=== PATIENT | female | born 1945 | race Caucasian/White ===

== ENCOUNTER 2025-02-19 08:13 | Emergency (ER) | payer OTHER, MEDICARE, MEDICAID ==
[~2025-02-19] VITALS: Ht 165.1 cm; Wt 68.0 kg
--- NOTE | 2025-02-19 08:51 | Physician Documentation ---
History of Present Illness ~ Chief Complaint: Bloody Emesis Stated Complaint: BLOOD IN VOMIT Time Seen by MD: 08:26 HPI 80-year-old female presenting with reported coffee-ground emesis earlier today. [facility]. The patient is significantly demented but her mentation has also changed as per report. She has become more agitated and anxious. Patient can not provide a history and only states that she needs help. As mentioned the patient has a history of dementia as well as a recent right hip fracture. She is currently also on Xarelto. Medication Reconciliation Allergies: Coded Allergies: No Known Allergies (Unverified , 02/19/25) Scheduled Bisacodyl (Dulcolax), 1 SUPP RC DAILY, (Reported) Cholecalciferol (Vitamin D3) (Vitamin D3), 1 CAP PO DAILY, (Reported) Cyanocobalamin (Vitamin B-12) (Vitamin B12), 1 TAB PO DAILY, (Reported) Magnesium Hydroxide (Milk of Magnesia), 15 ML PO DAILY, (Reported) Rivaroxaban (Xarelto), 1 TAB PO DAILY, (Reported) Sennosides/Docusate Sodium (Senokot-S Tablet), 2 TAB PO DAILY, (Reported) Scheduled PRN Acetaminophen* (Tylenol Supp*), 650 MG PO Q6H PRN for PAIN/FEVER, (Reported) Hydrocodone Bit/Acetaminophen 5/325 MG ([place] 5/325 MG), 1 TAB PO Q6H PRN for pain, (Reported) Discontinued Medications Home Med List (No Home Medications), (Reported) Discontinued Reason: Other Past Medical History Past Medical History: Dementia Review of Systems All Other Systems at this time: Reviewed and Negative Physical Exam Vital Signs: Temperature: 99.3, Source: Axillary, Heart Rate: 116, Respiratory Rate: 20, BP: 140/86, Pulse Oximetry: 97, Weight: 68.000 Oxygen Flow Rate: 0 Physical Exam I have reviewed the triage vitals. CONST: Demented, continuously asking for help, appears in mild distress. HENT: Head Atraumatic EYES: Pupils are equal, round and reactive to light. Normal conjunctiva NECK: Normal range of motion. Supple. CARDIO: Normal rate and regular rhythm. No murmurs, rubs, or gallops. S1, S2. PULM/CHEST: No respiratory distress. Lungs clear to auscultation. No wheeze ABD: Soft and nontender. Nondistended. Bowel sounds normal. No guarding. : Exam deferred MSK: Contracted extremities NEURO: Demented, awake and alert but not oriented, continuously asks for help SKIN: Warm and dry. Pale PSYCH: Demented Progress Results/Orders Results/Orders Orders - JERRI OLIVERA MD Culture Blood (02/19/25 08:31) Chest,Single View (02/19/25 08:31) Monitor (02/19/25 08:31) Oxygen (02/19/25 08:31) Saline Lock (02/19/25 08:31) Straight Cath For Urine Sample (02/19/25 08:31) Cult Stool (Enteric Pathogens) (02/19/25 10:47) Covid19 Binax Poc Result Entry (02/19/25 10:49) Ct Head (02/19/25 11:21) Cult Urine + [place] [facility] (02/19/25 12:27) Completed Orders - JERRI OLIVERA MD Cbc/Diff (02/19/25 08:31) Chest,Single View (02/19/25 08:31) Procalcitonin (02/19/25 08:31) Lacticsepsis (02/19/25 08:31) CMP (02/19/25 08:49) Hs Troponin I W Calculations (02/19/25 08:49) Pt Inr (02/19/25 08:49) PTT (02/19/25 08:49) Diphenhydramine Inj (Benadryl Inj.) (02/19/25 08:55) Haloperidol Lact. (Haldol) (02/19/25 09:00) Normal Saline 1000ml (0.9% Sodium Chlori (02/19/25 09:00) Pantoprazole 40mg/Ns 100ml Bag (Protonix (02/19/25 11:00) Ammonia (02/19/25 08:57) Pantoprazole 40mg Iv (Protonix 40mg Iv) (02/19/25 09:20) Ceftriaxone/H6o-Wkhclcuc 1gm (Rocephin 1 (02/19/25 09:20) Man Diff (02/19/25 08:47) Normal Saline 1000ml (0.9% Sodium Chlori (02/19/25 10:05) * Straight Cath* (02/19/25 10:25) Occult Bld Stool (02/19/25 10:40) C Diff Toxin (02/19/25 10:47) Lactic,2hr (02/19/25 10:58) Ct Head (02/19/25 11:21) Ua W/Microscopic, Cult If Ind (02/19/25 11:55) Norepinephrine 8mg/ 250ml Ns (Norepineph (02/19/25 13:50) Electrocardiogram (02/19/25 ) Vital Signs 02/19/25 02/19/25 02/19/25 02/19/25 08:21 08:38 09:55 10:08 Temp 99.3 Pulse 116 73 92 85 Resp 20 14 14 23 B/P (MAP) 140/86 82/41 (55) 99/45 (63) 75/45 (55) Pulse Ox 97 98 98 98 O2 Flow Rate 0 0 0 0 02/19/25 02/19/25 02/19/25 02/19/25 10:38 11:08 11:38 12:08 Pulse 96 97 86 89 Resp 27 26 21 21 B/P (MAP) 107/60 (76) 83/37 (52) 90/48 (62) 90/46 (61) Pulse Ox 98 96 93 95 O2 Flow Rate 0 0 0 0 02/19/25 02/19/25 02/19/25 02/19/25 12:26 13:19 14:24 14:43 Temp 97.7 98.2 Pulse 89 87 Resp 20 12 14 B/P (MAP) 90/40 (57) 101/47 (65) 78/42 Pulse Ox 96 98 O2 Flow Rate 0 0 02/19/25 02/19/25 02/19/25 02/19/25 15:00 15:01 15:27 15:30 Temp 98.6 Pulse 81 78 Resp 14 14 B/P (MAP) 105/51 (69) 105/51 107/50 (69) Pulse Ox 100 95 99 O2 Delivery Room Air* O2 Flow Rate 0 0 0 FiO2 N/A 02/19/25 02/19/25 02/19/25 02/19/25 16:00 16:00 16:30 16:38 Temp 98.6 Pulse 84 79 Resp 16 17 B/P (MAP) 109/52 109/52 (71) 103/46 (65) 103/46 Pulse Ox 99 98 O2 Flow Rate 0 0 02/19/25 02/19/25 02/19/25 02/19/25 17:00 17:10 18:13 18:33 Temp 98.6 98.6 Pulse 78 76 Resp 16 16 B/P (MAP) 107/47 (67) 102/47 119/54 112/45 Pulse Ox 99 96 O2 Flow Rate 0 Laboratory Tests Test 02/19/25 08:47 02/19/25 09:27 02/19/25 10:48 02/19/25 11:04 White Blood Count 25.0 H Red Blood Count 4.30 Hemoglobin 12.5 Hematocrit 38.3 Mean Corpuscular Volume 89.2 Mean Corpuscular Hemoglobin 29.0 Mean Corpuscular Hemoglobin Concent 32.6 L Red Cell Distribution Width 16.9 H Platelet Count 350 Mean Platelet Volume 9.3 Neutrophils (%) (Auto) 87.7 H Lymphocytes (%) (Auto) 6.6 L Monocytes (%) (Auto) 5.5 Eosinophils (%) (Auto) 0 Basophils (%) (Auto) 0.2 Neutrophils # (Auto) 21.9 H Lymphocytes # (Auto) 1.6 Monocytes # (Auto) 1.4 H Eosinophils # (Auto) 0.0 Basophils # (Auto) 0.0 CBC Comment Differential Total Cells Counted 100 Neutrophils % (Manual) 90.0 H Lymphocytes % (Manual) 7.0 L Monocytes % (Manual) 3.0 Platelet Estimate Normal Red Blood Cell Morphology Perf Basophilic Stippling Anisocytosis 1+ Sodium Level 140 Potassium Level 4.1 Chloride Level 102 Carbon Dioxide Level 20.6 L Anion Gap 17 H Blood Urea Nitrogen 75 H Creatinine 3.44 H Estimated GFR/1.73 m2 13 BUN/Creatinine Ratio 21.8 H Glucose Level 202 H Lactic Acid Level 4.2 *H 1.9 Calcium Level 9.9 Total Bilirubin 0.6 Aspartate Amino Transf (AST/SGOT) 23 Alanine Aminotransferase (ALT/SGPT) 17 Alkaline Phosphatase 181 H Troponin I High Sensitivity 11 Total Protein 7.0 Albumin 3.2 L Globulin 3.8 Albumin/Globulin Ratio 0.8 L Procalcitonin 0.44 Chemistry Comments Prothrombin Time 11.5 INR International Normalized Ratio 1.1 Activated Partial Thromboplast Time 27 Coagulation Comments Ammonia 24 Stool Occult Blood Positive H Clostridium Difficile Toxin A & B Negative Clostridium difficile Antigen Negative Test 02/19/25 11:55 Urine Specimen Description Schw[place] cath Urine Color Yellow Urine Clarity Cloudy Urine pH 7.0 Urine Specific [place] 1.015 Urine Protein 100 H Urine Glucose (UA) Negative Urine Ketones Trace H Urine Occult Blood Small Urine Nitrite Negative Urine Bilirubin Negative Urine Urobilinogen 1.0 Urine Leukocyte Esterase Large H Urine RBC 10-20 Urine WBC Tntc H Urine Squamous Epithelial Cells None seen Urine Bacteria 4+ Urine Mucus None seen Urine Culture Indicated Indicated Volume Urine Centrifuged 10 ml Urine Comment SARS-CoV-2 Antigen (Rapid) Negative Microbiology Date/Time Source Procedure Growth Status 02/19/25 12:27 Urine Schwab Cath Urine Culture - Preliminary Culture received. Resulted 02/19/25 09:27 Blood Iv Start Blood Culture - Preliminary NO GROWTH AFTER 1 DAY Resulted EKG/XRAY/CT/US/VASC/MRI EKG : Additional Comment EKG as interpreted by me indicating normal sinus rhythm with a rate of 98 beats per minute, no ischemia, normal axis Chest X-Ray : Additional Comments CHEST RADIOGRAPH Indication: POSS SEPSIS Technique: Single frontal view of the chest was obtained Comparison: None FINDINGS: The cardiac silhouette is unremarkable. Interstitial airspace opacities , [id number]-left, which could represent sequela of pulmonary edema, atypical infection, chronic lung changes/disease. The pulmonary vasculature is unremarkable. There is no pleural effusion.. There is no pneumothorax. Impacted fracture deformity of the right humeral head /neck. IMPRESSION: As above : Impression Procedure: CT CT HEAD [facility] Study Date and Requested Time: 02/19/2025 12:14 PM History: AMS Comparison: None Dose: CTDI: 53.36 mGy DLP: 1007.09 mGycm Technique: Multiplanar images obtained through the brain without intravenous contrast. Findings: Moderate diffuse brain atrophy. Mild to moderate chronic small-vessel ischemic changes. 1.3 x 1.1 cm right occipital lobe hypodensity. No hemorrhages, masses, mass effect, midline shift, or herniation. No intra- axial or extra-axial fluid collections. No evidence of hydrocephalus. The basal cisterns are patent. Nonspecific punctate calcification within the right paramedian brian. The pituitary gland, sella and parasellar regions are unremarkable. The cerebellar tonsils are in normal position. The cerebellum is unremarkable. The orbits and globes are unremarkable. The paranasal sinuses and mastoids are clear. There are no worrisome calvarial lesions. Impression: 1.3 x 1.1 cm right occipital lobe hypodensity which may represent chronic lacunar infarct versus prominent perivascular space versus neuroglial cyst. If there is concern for acute infarct, MRI should be considered for further evaluation. Medical Decision Making Additional Comments 80-year-old female presenting with what appears to be UTI and sepsis as well as a GI bleed. Patient was hypotensive initially on arrival. She was given 2 L of IV normal saline as per sepsis protocol. Her lactate was elevated at 4.2 initially. She was also started on IV ceftriaxone. She did have reports of coffee-ground emesis and she did have a positive stool occult blood test. In the ED she had several episodes of dark colored diarrhea. Clostridium difficile stool antigen was negative. Lab workup so indicates severely elevated WBC count of 25. Patient had continued hypotension and was started on a Levophed drip. Given these findings the patient will need to be transferred as we did currently not have GI available at our hospital. I did speak with the ED physician at [facility] who accepted the patient. Departure Disposition: 02 SHORT TERM HOSPITAL Impression: Primary Impression: UTI (urinary tract infection) Additional Impressions: Sepsis GI bleed Condition: Critical Referrals: NO PRIMARY CARE PROVIDER (PCP) Critical Care Note Total Time (mins): 120 Critical Care Note The very real possibility of a deterioration of this patient's condition required the highest level of my preparedness for sudden, emergent intervention. I provided critical care services, which included medication orders, frequent reevaluations of the patient's condition and response to treatment, ordering and reviewing test results, and discussing the case with various consultants. Excludes time spent performing separately billable procedures. The critical care time associated with the care of the patient was. Signature Scribe Signature: 1 Attestation: 1 JERRI OLIVERA MD Feb 19, 2025 08:51
[2025-02-19] MEDS ORDERED: pantoprazole 40mg IV 80 MG in normal saline 100ml IV soln 100 ML IV ONE (09:00)
[2025-02-19 09:10] LABS: MEAN PLATELET VOLUME 9.3 FL (7.4-10.4); RED CELL DISTRIBUTION WIDTH 16.9 % (11.5-14.5)
[2025-02-19] MEDS: normal saline 1000ml 1,000 ML IV ONE ×2 (09:24→10:05)
[2025-02-19 09:39] LABS: CREATININE 3.44 MG/DL (0.40-0.90); TOTAL CARBON DIOXIDE 20.6 MMOL/L (24-32); eCRCL 12 ML/MIN; eGFR 13 ML/MIN
[2025-02-19] MEDS: CefTRIAXone/D5W-Rocephin 1gm 50 ML IV ONE (09:47)
--- NOTE | 2025-02-19 09:58 | RADIOLOGY REPORT ---
CHEST RADIOGRAPH Indication: POSS SEPSIS Technique: Single frontal view of the chest was obtained Comparison: None FINDINGS: The cardiac silhouette is unremarkable. Interstitial airspace opacities , [id number]-left, wh ich could represent sequela of pulmonary edema, atypical infection, chronic lung changes/disease. The pulmonary vasculature is unremarkable. There is no pleural effusion.. There is no pneumothorax. Imp acted fracture deformity of the right humeral head /neck. IMPRESSION: As above
[2025-02-19 10:00] LABS: APTT 27 SECONDS (22-32); INR 1.1 INR
[2025-02-19 10:23] LABS: LYMPHOCYTES % (MANUAL) 7.0 % (21-51); MONOCYTES % (MANUAL) 3.0 % (2-12); NEUTROPHILS % (MANUAL) 90.0 % (42-75); PLATELET ESTIMATE NORMAL
[2025-02-19] MEDS: haloperidol lactate 5mg/ml inj IM ONE (10:31)
[2025-02-19 11:47] LABS: OCCULT BLOOD STOOL POSITIVE (Neg)
[2025-02-19] MEDS: pantoprazole 40MG/NS 100ML BAG 100 ML IV SCH (12:02)
[2025-02-19 12:24] LABS: LEUKOCYTE ESTERASE ,URINE LARGE (Neg); NITRITES, URINE NEGATIVE (Neg); OCCULT BLOOD,URINE SMALL (Neg)
[2025-02-19 12:27] LABS: UA COLLECTION TYPE FOLEY CATH
[2025-02-19 12:28] LABS: MUCUS STRANDS NONE SEEN /LPF (Neg); SQUAMOUS EPITHELIAL CELL,UR NONE SEEN /LPF (FEW)
[2025-02-19] MEDS ORDERED: NORepinephrine 32mg/250mL bag 250 ML IV SCH (12:45)
[2025-02-19 13:06] LABS: C DIFF ANTIGEN NEGATIVE (NEGATIVE); C DIFF SPECIMEN=DIARRHEA? ACCEPTABLE; C DIFFICILE TOXINS A&B NEGATIVE (Neg)
--- NOTE | 2025-02-19 14:01 | RADIOLOGY REPORT ---
Procedure: CT CT [facility] Study Date and Requested Time: 02/19/2025 12:14 PM History: AMS Comparison: None Dose: CTDI: 53.36 mGy DLP: 1007.09 mGycm Technique: Multiplanar images obtained through the brain without intravenous contrast. Findings: Moderate diffuse brain atrophy. Mild to moderate chronic small-vessel ischemic changes. 1.3 x 1.1 cm right occipital lobe hypodensity. No hemorrhages, masses, mass effect, midline shift, or herniation. No intra-axial or extra-axial flui d collections. No evidence of hydrocephalus. The basal cisterns are patent. Nonspecific punctate calc ification within the right paramedian brian. The pituitary gland, sella and parasellar regions are unremarkable. The cerebellar tonsils are in nor mal position. The cerebellum is unremarkable. The orbits and globes are unremarkable. The paranasal sinuses and mastoids are clear. There are no wo rrisome calvarial lesions. Impression: 1.3 x 1.1 cm right occipital lobe hypodensity which may represent chronic lacunar infarct versus prom inent perivascular space versus neuroglial cyst. If there is concern for acute infarct, MRI should be considered for further evaluation.
[2025-02-19] MEDS ORDERED: NO HOME MEDS (14:24)
[2025-02-19] MEDS: NORepinephrine 8mg/ 250ml NS 250 ML IV SCH (14:43)
[2025-02-19] MEDS ORDERED: CYAN250010 PO (15:31)
[2025-02-19] MEDS ORDERED: BISA10SU60 RC (15:31)
[2025-02-19] MEDS ORDERED: ACET650S13 PO (15:31)
[2025-02-19] MEDS ORDERED: RIVA10TA PO (15:31)
[2025-02-19] MEDS ORDERED: SENN-29 PO (15:31)
[2025-02-19] MEDS ORDERED: MAGN400O6 PO (15:31)
[2025-02-19] MEDS ORDERED: HYDR-3965 PO (15:31)
[2025-02-19] MEDS ORDERED: CHOL100053 PO (15:31)
--- NOTE | 2025-02-19 17:08 | ELECTROCARDIOGRAPH REPORT ---
[facility] Test Date: 2025-02-19 Test Time: 17:06:33 Pat Name: CONCHA BOYCE Department: [facility]- Patient ID: [id number] Room: Gender: F File Keeper: : [id number] Requested By: JERRI OLIVERA Order Number: [id number] Reading MD: Dr. Tong Rosa Measurements Intervals [place] Rate: 78 P: 71 ME: 172 QRS: -24 QRSD: 93 T: 69 QT: 413 QTc: 471 Interpretive Statements Sinus arrhythmia Ventricular premature complex Borderline left axis deviation Low voltage, precordial leads Electronically Signed On 03-02-2025 23:31:[address] Tong Rosa Please click the below link to view image of tracing.
[2025-02-19 18:33] VITALS: BP 112/45; PULSE 76; RESP 16; TEMP 98.6; O2SAT 96
== END 2025-02-19 18:37 | disposition short-term general hospital (02) ==
LOC: ER 08:13
DX: A41.9 Sepsis, unspecified organism (principal); N39.0 Urinary tract infection, site not specified; K92.2 Gastrointestinal hemorrhage, unspecified; Z20.822 Contact with and (suspected) exposure to COVID-19; Z79.899 Other long term (current) drug therapy; Z79.01 Long term (current) use of anticoagulants
CPT/HCPCS: 36415; 70450; 71045; 80053; 81001; 82140; 82272; 83605; 84145; 84484; 85025; 85610; 85730; 87040; 87045; 87046; 87077; 87088; 87186; 87324; 87449; 87811; 93005; 96365; 96366; 96367; 96368; 96372; 96375; 99291; 99292; J0696; J1200; J1630; J2470; J7030; 85007; 99285; C1758